=== PATIENT | male | born 1955 | race Caucasian/White ===

== ENCOUNTER 2025-02-21 09:55 | Emergency (ER) | payer MEDICARE, BC, SELFPAY ==
[2025-02-21] VITALS (15 sets, daily range): BP systolic 123–174; BP diastolic 74–92; PULSE 75–91; RESP 14–19; TEMP 36.9; O2SAT 94–97; BMI 32.0
--- OUTSIDE RECORDS SUMMARY | 2025-02-21 09:57 | XMS_ITS | Encounter Summary ---
Author Organization [facility] Address [address] [place] [address] Care Team Providers Care Application Technician Name Role Phone Unassigned, Provider Primary Care Provider Unava ilable Encounter Details Date Type Department Care Team (Late st Contact Info) Description 05/18/2004 [facility] Operating Room [address] [place], [place] [id number], [place] [address] Anuj Foote DDS, MS [address] [place] [address] Social History Tobacco Use Types Packs/Day Years Used Date Smoking Tobacco: Never Smokeless Tobacco: Never Alcohol Use Standard Drinks/Week Comments No 0 (1 standard drink = 0.6 oz pur e alcohol) Sex and Gender Information Value Date Recorded Sex Assigned at Not on file Legal Sex Male 4:15 AM CDT Gender Identity Not on file Sexual Orientation Not on file documented as of this encounter Procedure Notes * Anuj Foote - 05/18/2004 12:00 AM SENIOR AIR DIRECTOR DATE OF SURGERY: 05/18/2004 STAFF SURGEON: Anuj Foote DDS, MS PREOPERATIVE DIAGNOSIS: Left mandibular intrabony cyst and impacted wisdom tooth #17. POSTOPERATIVE DIAGNOSIS: Left mandibular intrabony cyst and impacted wisdom tooth #17. NAME OF OPERATION: Enucleation and removal, left mandibular cyst and removal of associated teeth #17, #18 and #19. ORGANS OF TISSUES REMOVED: Teeth x3 and associated jaw cyst for routine histology examination. ANESTHESIA: Orotracheal general anesthesia . BLOOD REPLACED: None DRAINS: None COMPLICATIONS: None HISTORY: This is a 49-year-old male referred by his home clinic for evaluation of a noted jaw lucency that was picked up on routine dental panoramic radiograph. The last one had been taken 10 years ago did not show any lucency but there had been a fairly large one noted associated with an impacted tooth #17 involving the roots of teeth numbers 18 and 19 as well. After evaluation, it was decided that this needed to be removed , any associated teeth removed and the area curetted and inspected and treated. We discussed potential risks of pain, infection, bleeding, swelling, recurrence of the soft tissue entity, loss of the associated teeth, temporary or permanent paresthesia or anesthesia of the inferior alveolar and lingual nerves, spontaneous jaw fracture post enucleation and malunion of the jaw. After this discussion and preoperative history and physical examination which showed no contraindication of the planned procedure or general anesthesia, the patient elected to proceed with the procedure, was brought in today same day for the procedure and informed consent document was signed. PROCEDURE: The patient was pre-medicated with 1 gram cephazolin preoperatively. Taken to the operating room, general anesthesia was induced and he was orotracheally intubated. He was prepped and draped in the usual fashion for an intraoral procedure. Moist throat pack was placed and kept in throughout the procedure. Ten cc of 1% lidocaine with 1:100,000 epinephrine were infiltrated into the surgical site areas. A crestal incision from posterior to the second molar around the necks of the teeth to the distal aspect of the first premolar was completed subperiosteal dissection completed buccally and using burs and saline irrigation, the crown of the impacted wisdom tooth and the very superior aspect of the associated cyst were exposed. Careful dissection was completed. The tooth #17 was then removed in segments after careful segmentation with the bur. Once this was removed we noted to be along the posterior aspect of the cyst. Additional bone relief was completed. It was noted that the cyst was associated with the root tips of teeth numbers 18 and 19. They therefore were extracted and submitted along with the specimen. The cyst was then carefully enucleated. It was noted that there was close approximation of the inferior alveolar nerve with the cyst capsule and that the nerve did tear in its midposition as this cyst was enucleated. It was noted that there were 3 small areas of perforation of the lingual plate. No perforations of the inferior border or buccal plate of the bone. Following this, manual and hand piece curettage was completed in all the bony areas. The wound was thoroughly irrigated any of the exposed periosteum at the perforations were cauterized with electrocautery. Superior soft tissue margins were all removed as well that could have been involved, and at this point 5 cc of DBX bone paste was placed into the wound and the wound was closed in layers with interrupted and continuous 3-0 chromic sutures to allow for water tight closure. Sponge and instrument counts was noted to be correct at that point. Hemostatic pack was placed. The moist throat pack was removed and the patient was allowed to recover from general anesthesia. Of note is that there was a single epineurial suture placed to reapproximate the nerve passively using one 6-0 nylon suture. Again, sponge and instrument counts was correct. Blood loss minimal. Specimen was associated cyst and teeth x3. No blood product replacement. lef Dictated: 05/18/2004 14:29:54 Anuj Foote DDS Transcribed: 05/18/2004 15:04:12 Doc #: [id number] cc: Demetris Ayon MD, Primary DO NOT SIGN UNLESS PRESENT FOR PROCEDURE I attest that I was present for and participated in the castro portions of this procedure(s) in compliance with the Health Care Financing Administration Teaching Physician Guidelines. Signed Date [facility] Staff Physician 1 Page 2 Patient Name: BRITT JACK Visit Date: 05/18/2004 OUTPATIENT OPERATIVE REPORT CONFIDENTIAL MEDICAL RECORD [address] [address] Page 1 Patient: BRITT JACK [id number] Date of : 1955 Visit Date: 05/18/2004 OUTPATIENT OPERATIVE REPORT OR AIR DIRECTOR documented in this encounter Plan of Treatment Upcoming Encounters Date Type Department Care Team (Late st Contact Info) Description 04/28/2025 12:00 PM SENIOR AIR DIRECTOR [facility]ment [facility] [place] [address] [place] [phone] Aide Wick, [facility] [address] [place] [address] documented as of this encounter Procedures Procedure Name Priority Date/Time Associated Diagnosis Comments SURGICAL PATH Routine 05/18/2004 12:00 AM SENIOR AIR DIRECTOR documented in this encounter Results * SURGICAL PATH (05/18/2004 12:00 AM SENIOR AIR DIRECTOR) 9911 (NOTE) Surgical Final Report Patient Name: BRITT JACK Taken: 05/18/2004 Received: 05/18/2004 Reported: 05/19/2004 Physician(s): ANUJ FOOTE ([id number]) Final Pathologic Diagnosis Soft tissue, mandible tooth #19, enucleation 1. Dentigerous cyst, inflamed. 2. Teeth, gross examination. km/05/19/2004 Electronicall y Signed Out By Kasey Gonzalez MD ([id number]) Procedures/Adden da Clinical History Odontogenic cyst Gross Description The specimen is labeled #17, #18, and associate mandibular cyst. The specimen consists of two (2) teeth and six (6) bony fragments. The specimen also includes a 2 cm in greatest dimension soft red roberts piece of tissue. The soft tissue is submitted on one (1) cassette. dm/cab cab/05/19/2004 Microscopic Description Microscopic examination is performed on 1 slide. km/05/19/2004 Kasey Gonzalez MD ([id number]) [facility] 05/18/2004 05/18/2004 us Anuj Foote DDS, MS LAB_1 Fin al Result [place], [place] [phone] documented in this encounter Visit Diagnoses Not on filedocumented in this encounter Care Teams Application Technician Relationship Specialty Start Date End Date Unassigned, Provider [address] [place] [address] PCP - General 03/01/00 documented as of this encounter
--- OUTSIDE RECORDS SUMMARY | 2025-02-21 09:57 | XMS_ITS | Clinical Summary ---
Author Organization [facility] Address [address] [place] [address] Care Team Providers Care Equipment Oiler Name Role Phone Unavailable Primary Care Provider Unavailabl e Allergies No known active allergies Medications Blood Pressure Test Kit-Large kitIndications:Hyp ertension, unspecified type As directed 1 unit. For home use-hypertension 1 Each 02/22/20 18 Active blood sugar diagnostic (ACCU-CHEK GUIDE) stripIndications:D iabetes mellitus type 2, uncontrolled, without complications Guide Strips. E11.65 NIDDM type II, uncontrolled - Test 3 times/day, Reason: High A1C 100 Strip 12 01/10/20 19 Active lancets (ACCU-CHEK FASTCLIX LANCET DRUM)Indications:D iabetes mellitus type 2, uncontrolled, without complications Dispense item covered by pt ins. E11.65 NIDDM type II, uncontrolled - Test 3 times/day, Reason: High A1C 102 Each 12 01/10/20 19 Active atorvastatin (LIPITOR) 20 mg tabletIndications: Hyperlipidemia, unspecified hyperlipidemia type TAKE ONE TABLET BY MOUTH ONE TIME DAILY AT BEDTIME 90 Tablet 3 05/04/19 25 Active amLODIPine (NORVASC) 10 mg tabletIndications: Hypertension, unspecified type Take 1 Tablet (10 mg) by mouth once daily. 90 Tablet 3 10/26/19 25 Active glipiZIDE extended-release (GLUCOTROL XL) 10 mg Extended-Release tabletIndications: Uncontrolled type 2 diabetes mellitus with hyperglycemia (HC) Take 2 Tablets (20 mg) by mouth once daily before a meal. 180 Tablet 1 10/26/19 25 Active hydroCHLOROthiazid e 25 mg tabletIndications: Hypertension, unspecified type Take 1 Tablet (25 mg) by mouth once daily. 90 Tablet 3 10/26/19 25 Active metFORMIN (GLUCOPHAGE) 1,000 mg tabletIndications: Uncontrolled type 2 diabetes mellitus with hyperglycemia (HC) Take 1 Tablet (1,000 mg) by mouth two times daily with meals. 180 Tablet 1 10/26/19 25 Active lisinopriL (PRINIVIL; ZESTRIL) 40 mg tabletIndications: Hypertension, unspecified type Take 1 Tablet (40 mg) by mouth once daily. 90 Tablet 1 10/26/19 25 Active pioglitazone (ACTOS) 30 mg tabletIndications: Uncontrolled type 2 diabetes mellitus with hyperglycemia (HC) Take 1 Tablet (30 mg) by mouth once daily. 90 Tablet 1 10/26/19 25 Active Active Problems Problem Noted Date Diagnosed Date Type 2 diabetes mellitus wit h other specified complication, without long-term current use of insulin 07/17/2023 Overweight 10/12/2022 Controlled type 2 diabetes m ellitus without complication, without long-term current use of insulin 07/07/2020 Essential hypertension 03/16/2009 Resolved Problems Problem Noted Date Diagnosed Date Resolved Date Type 2 diabetes mellitus wit h hyperglycemia, without long-term current use of insulin 10/05/2021 07/17/2023 Obesity (BMI 30-39.9) 03/01/20212022 Diabetes mellitus type 2, un controlled, without complications 01/22/2019 07/07/2020 Immunizations Immunization Administration Dates Next Due COVID-19 vaccine (Crunched NTCarnival 30mcg/0.3mL) 12YO+ EVA-SUCROSE PF, MDV 10/05/2021 COVID-19 vaccine (Crunched NTech 30mcg/0.3mL) PF, MDV 03/01/2021,06/30/2020,06/09/2020 Hepatitis B (Adult) 12/29/1994,08/01/1994,1994 Hepatitis B, Unspecified 12/29/1994,08/01/1994,0 07/04/1994 Influenza, High-dose Inactivated 12/18/2023 Influenza, High-dose Quadriv alent Inactivated 01/09/2023,01/10/2022 Influenza, IIV4 12/28/2018, 8,02/05/2015,2013 Influenza, IIV4 (=>6mos) MDV 12/24/2016 Influenza, Inactivated AIIV4 (Age 65+ Years) Preserv Free 03/01/2021 Pneumococcal Poly,23-Valent (Pneumovax) 07/24/2020 Pneumococcal conj 13-Valent (Prevnar 13) 04/23/2019 Td (Age >=7 Years) 03/01/2003 Tdap 10/11/2021,09/30/2011 Zoster (Shingrix-RZV, recombinant) 09/30/2020, Zoster (Zostavax-ZVL, live) 07/30/2015 Family History Medical History Relation Name Comments Heart Disease Paternal Grandfather Cancer-colon No Family History Cancer-prostate No Family History Relation Name Status Comments Paternal Grandfather Social History Tobacco Use Types Packs/Day Years Used Date Smoking Tobacco: Never Smokeless Tobacco: Never Tobacco Cessation:Counseling Given: No Alcohol Use Standard Drinks/Week Comments Yes 0 (1 standard drink = 0.6 oz pur e alcohol) 2 beers per months PHQ-2 Answer Date Recorded PHQ-2 TOTAL SCORE 0 04/22/2024 Social Connections Answer Date Recorded Do you often feel lonely or isolated from those around you? 0 07/25/2024 Financial Resource Strain Answer Date R ecorded Difficulty of Paying Living Expenses 3 07/25/2024 Difficulty of Paying Living Expenses Not on file 07/25/2024 Food Insecurity Answer Date Recorded Do you worry your food will run out before you are able to buy more? 1 07/25/2024 Transportation Needs Answer Date Record ed Does lack of transportation keep you from medica l appointments? 1 07/25/2024 Does lack of transportation keep you from work, meetings or getting things that you need? 1 07/25/2024 Housing Stability Answer Date Recorded What is your housing situation today? 1 07/25/2024 Utilities Answer Date Recorded Do you have trouble paying f or utilities (for example, heat, electricity, water, phone)? 1 07/25/2024 Sex and Gender Information Value Date Recorded Sex Assigned at Not on file Legal Sex Male 5:25 AM PIPE SMOKING MACHINE OPERATOR Gender Identity Not on file Sexual Orientation Not on file Obstetrics History Last Filed Vital Signs Vital Sign Reading Time Taken Comments Blood Pressure 146/75 10/25/2024 8:47 AM CDT Pulse 73 10/25/2024 8:32 AM CDT Temperature 36.9 C (98.5 F) 11/04/2019 2:41 PM CDT Respiratory Rate - - Oxygen Saturation 98% 10/25/2024 8:32 AM CDT Inhaled Oxygen Concentration - - Weight 95.2 kg (209 lb 12.8 oz) 10/25/2024 8:32 AM CDT Height 177.4 cm (5' 9.84) 04/22/2024 9:01 AM CS T Body Mass Index 30.24 04/22/2024 9:01 AM PIPE SMOKING MACHINE OPERATOR Plan of Treatment Upcoming Encounters Date Type Department Care Team (Late st Contact Info) Description 04/28/2025 8:15 AM PIPE SMOKING MACHINE OPERATOR Office Visit [facility] [address] [place] [address] Theo Schroeder MD [address] [place] [address] Health Maintenance Due Date Last Done Comments Medicare Wellness for age 65+ 03/02/2022 03/01/2021, 10/22/2019 Fecal testing non-DNA (FIT,FOBT,iFOBT) for age 45-75 09/07/2022 09/07/2021, 07/08/2020, 04/24/2019, Additional history exists Influenza Vaccine (#1) 2024 , 03/01/2021, 12/28/2018, Additional history exists BMI (ht and wt on same day) for age 18+ 04/22/2025 04/22/2024, 01/16/2024, 07/17/2023, Additional history exists Depression screening for age 12+ 04/24/2025 04/24/2024, 04/22/2024, 10/12/2022, Additional history exists Lipids for age 45-75 01/15/2029 01/16/2024, 10/12/2022, 10/05/2021, Additional history exists RSV vaccine for adults or (1 - 1-dose 75+ series) 2029 Tetanus booster 10/12/2031 10/11/2021, 07/0 08/2011, 03/01/2003 Hepatitis B series for 19+ Completed 12/29, 12/29/1994, 08/01/1994, Additional history exists Hepatitis C screening for ag e 18-79 Completed 11/04/2019, 04/23/2019 Pneumococcal series for age 50+ Completed , 04/23/2019 Zoster (shingles) series for age 50+ Completed 09/30/2020, 07/24/2020, 07/30/2015 Procedures Procedure Name Priority Date/Time Associated Diagnosis Comments LIPID PANEL W REFLEX MEASURED LDL Routine 01/16/2024 8:10 AM CDT Controlled type 2 diabetes mellitus without complication, without long-term current use of insulin (HC) OCCULT BLOOD IFOBT STOOL Routine 09/07/2021 7:28 AM CDT Screening for colorectal cancer ANTI HCV Routine 11/04/2019 3:15 PM CDT Screen for STD (sexually transmitted disease) from Last 3 Months or Most Recently Relevant to Health Maintenance Results * (ABNORMAL) LIPID PANEL W REFLEX MEASURED LDL (01/16/2024 8:10 AM CDT) CHOLESTEROL, TOTAL 110 <200 mg/dL [email or web address] HDL CHOLESTEROL 33(L) > OR = 40 mg/dL [email or web address] TRIGLYCERIDES 144 <150 mg/dL [email or web address] LDL-CHOLESTEROL 54 mg/dL (calc) [email or web address] Comment: Reference range: <100 Desirable range <100 mg/dL for primary prevention; <70 mg/dL for patients with CHD or diabetic patients with > or = 2 CHD risk factors. LDL-C is now calculated using the Shira calculation, which is a validated novel method providing better accuracy than the Friedewald equation in the estimation of LDL-C. Min SS et al. DEANGELO. 2013;310(19): 7014-8459 (http://education.[employer]faq/XJA628) CHOL/HDLC RATIO 3.3 <5.0 (calc) [email or web address] NON HDL CHOLESTEROL 77 <130 mg/dL (calc) [email or web address] Comment: For patients with diabetes plus 1 major ASCVD risk factor, treating to a non-HDL-C goal of <100 mg/dL (LDL-C of <70 mg/dL) is considered a therapeutic option. Blood BLOOD SPECIMEN / Unknown 01/16/2024 8:10 AM CDT 01/16/2024 8:12 AM CDT Narrative [facility] - 01/17/2024 4:31 AM CDT FASTING:YES FASTING: YES Jese Armenta MD CHEMISTRY Final Result Performing Organization Address [facility] Co de Phone Number [employer] [facility] [address] [place] [address], [facility] [address] [place] [address] * OCCULT BLOOD IFOBT STOOL (09/07/2021 7:28 AM CDT) Pathologist [facility] STOOL BLOOD ,IFOBT Negative Negative 09/13/2021 11:[address] [facility] Stool STOOL SPECIMEN / Unknown Non-Blood / Unknown 09/07/2021 7:28 AM CDT 09/13/2021 7:28 AM CDT Jese Armenta MD LABORATORY Final Result Performing Organization Address [facility] Co de Phone Number [facility] [address] [place] [address], [place] [phone] * ANTI HCV (11/04/2019 3:15 PM CDT) Pathologist [facility] HEPATITIS C ANTIBODY Non-React vaughn Non-React vaughn 11/04/2019 9:03 PM CDT [facility] Comment:Antibodies to HCV no t detected; does not exclude the possibility of exposure to HCV. Blood BLOOD SPECIMEN / Unknown Venipuncture / Unknown 11/04/2019 3:15 PM CDT 11/04/2019 3:15 PM CDT us Jese Armenta MD SEND OUTS Final Result [facility] [address] [place] [address], [place] from Last 3 Months or Most Recently Relevant to Health Maintenance Insurance [facility] MEDICARE PB ONLY MEDICARE PART B HB ONLY
--- OUTSIDE RECORDS SUMMARY | 2025-02-21 09:57 | XMS_ITS | Clinical Summary ---
Author Organization [facility] Address [address] [place] [address] Care Team Providers Care System Safety Engineer Name Role Phone Unassigned, Provider Primary Care Provider Unava ilable Source Comments You are receiving this document as you are listed as the primary care provider,follow-up provider, or the patient has been referred to you for consultation.This is in compliance with the Medicare and[facility] EHR Incentive Program,which states Providers who transition their patient to another setting of careor provider of care or refers their patient to another provider of care shouldprovide summary care record for each transition of care or referral. ip.access Allergies No known active allergies Medications lisinopril (ZESTRIL) 10 MG tabletIndicatio ns:Hypertension Take 10 mg by mouth daily. Indications: High Blood Pressure Disorder Active metFORMIN (GLUCOPHAGE) 500 MG tabletIndicatio ns:Type 2 Diabetes Mellitus Take 500 mg by mouth two times a day with meals. Indications: Type 2 Diabetes Active atorvastatin (LIPITOR) 20 MG tablet Take 20 mg by mouth daily at bedtime. 01/10/2020 Active aspirin EC 81 MG enteric coated tablet Take 81 mg by mouth daily. Active amLODIPine (NORVASC) 10 MG tablet Take 1 Tablet (10 mg) by mouth daily. 04/11/2024 Active glipiZIDE XL 10 MG 24 hour release tablet Take 1 Tablet (10 mg) by mouth daily. 04/11/2024 Active hydroCHLOROthia zide (ORETIC) 25 MG tablet Take 1 Tablet (25 mg) by mouth daily. 04/11/2024 Active pioglitazone (ACTOS) 30 MG tablet Take 0.5 Tablets (15 mg) by mouth daily. 04/22/2024 Active Active Problems No known active problems Social History Tobacco Use Types Packs/Day Years Used Date Smoking Tobacco: Never Smokeless Tobacco: Never Alcohol Use Standard Drinks/Week Comments No 0 (1 standard drink = 0.6 oz pur e alcohol) Sex and Gender Information Value Date Recorded Sex Assigned at Not on file Legal Sex Male 4:15 AM CDT Gender Identity Not on file Sexual Orientation Not on file Last Filed Vital Signs Vital Sign Reading Time Taken Comments Blood Pressure 139/82 08/15/2018 3:13 PM CDT Pulse 80 08/15/2018 3:13 PM CDT Temperature - - Respiratory Rate - - Oxygen Saturation - - Inhaled Oxygen Concentration - - Weight - - Height - - Body Mass Index - - Plan of Treatment Upcoming Encounters Date Type Department Care Team (Late st Contact Info) Description 04/28/2025 12:00 PM BOAT BUFFER PLASTIC Appointment [facility] [place] [id number] [place] [phone] [facility] [address] [place] [address] Health Maintenance Due Date Last Done Comments Colon Cancer Screening Plan Due 1955 Hep C Screening (Preventive Services) 1955 Adult Preventive Visit 1972 Cholesterol 1989 Zoster/Shingles Vaccine (2 of 3) 09/24/2015 07/30/2015 Pneumococcal Vaccine 50+ Yrs (2 of 2 - PCV20 or PCV21) 04/23/2020 04/23/2019 DTaP/Tdap/Td Vaccine (2 - Tdap) 09/29/2021 09/30/2011, 03/01/2003 COVID-19 Vaccine (3 - season) 2024 06/30/2020, 06/09/2020 Influenza Vaccine (#1) 2024 9, 01/03/2018, 12/24/2016, Additional history exists RSV Vaccine (1 - 1-dose 75+ series) 2029 HepA Vaccine Aged Out No longer eligi ble based on patient's age to complete this topic HepB Vaccine Aged Out No longer eligi ble based on patient's age to complete this topic Hib Vaccine Aged Out No longer eligi ble based on patient's age to complete this topic MCV4 Vaccine Aged Out No longer eligi ble based on patient's age to complete this topic Meningococcal B Vaccine Aged Out No l onger eligible based on patient's age to complete this topic Care Teams System Safety Engineer Relationship Specialty Start Date End Date Unassigned, Provider [address] [place] [address] PCP - General 03/01/00
--- NOTE | 2025-02-21 11:05 | ED.SYNCOPE ---
HPI - Syncope General Time Seen by Provider: 11:05 Date Seen: 02/21/25 Chief Complaint: Syncope/Fainted Stated Complaint: Headaches - passing out Time Seen by Provider: 02/21/25 11:04 Source: patient and RN notes reviewed Mode of arrival: ambulatory Limitations: no limitations History of Present Illness HPI narrative: This 6-year-old male is ambulatory into the ER with episodes of brief syncope an episode of presyncope today. About 2 weeks ago he states he was out in the garage, started feeling really lightheaded and dizzy, there was a chair behind him and he made it to the chair, feels he passed out briefly. He had another episode yesterday morning when he was sitting in the chair and it happened. This morning he got out of bed and walked to the dresser, felt like it was going to happen and grabbed the dresser, did not pass out. He notes for the last about 2-3 weeks, feels dizzy or lightheaded most of the morning. He does state he started metformin for diabetes. He is on blood pressure medicines, cholesterol medicines. He has no prior documented vascular history like heart disease. There is no personal or family history of blood clots. He has not been sick with anything. Has not noted any sense of irregular heartbeat, no chest pain, no palpitations or slow heartbeat, no shortness of breath with any of these symptoms. He has had no GI symptoms with any of these symptoms. He feels baseline neurologically as far as motor and sensory when he comes to. His brother reportedly had ?major? vascular disease of his heart, he is not sure if his brother had a CABG or just stenting but he notes he had ?surgery?. His dad has had a stroke. Patient does not smoke or drink. His chief complaint or triage does document headaches but he is adamant that he is having no headaches, he has had a sense of dizziness. MD complaint: loss of consciousness and almost passed out Related Data Home Medications ?Medication ?Instructions ?Recorded ?Confirmed amlodipine 10 mg tablet 10 mg PO DAILY 02/21/25 02/21/25 atorvastatin 20 mg tablet 20 mg PO QPM 02/21/25 02/21/25 glipizide 10 mg tablet, extended mg PO 02/21/25 release 24 hr hydrochlorothiazide 25 mg tablet 25 mg PO DAILY 02/21/25 02/21/25 lisinopril 40 mg tablet 40 mg PO DAILY 02/21/25 02/21/25 metformin 1,000 mg tablet 1,000 mg PO BID 02/21/25 02/21/25 pioglitazone 30 mg tablet 30 mg PO DAILY 02/21/25 02/21/25 Allergies Allergy/AdvReac Type Severity Reaction Status Date / Time No Known Drug Allergies Allergy Verified 02/21/25 16:13 Review of Systems Status of ROS: Reports: 6 or more systems reviewed and unremarkable except as noted in History and below [facility] Medical History (Updated 02/21/25 @ 16:43 by Margarita Arredondo MD) Diabetes ?E11.9 - Type 2 diabetes mellitus without complications (ICD-10) Hypertension ?I10 - Essential (primary) hypertension (ICD-10) Social History Smoking Status: Never smoker How often do you have a drink containing alcohol: never AUDIT-C Alcohol total score: 0 Non-prescribed substance use: denies use Exam Const: Vital Signs, click to edit/add: Vital Signs - 24 hr 02/21/25 10:28 02/21/25 11:47 02/21/25 12:00 Temperature 98.4 F Pulse Rate 80 81 Pulse Rate [Pulse Oximeter] 90 Respiratory Rate 18 19 Blood Pressure Blood Pressure [Ri ght Upper Arm] 174/82 H Pulse Oximetry 95 95 96 Oxygen Delivery Me thod Room Air 02/21/25 12:03 02/21/25 12:10 02/21/25 12:12 Temperature Pulse Rate 81 88 91 Pulse Rate [Pulse Oximeter] Respiratory Rate 16 Blood Pressure 123/74 152/85 H 147/91 H Blood Pressure [Ri ght Upper Arm] Pulse Oximetry 96 95 95 Oxygen Delivery Me thod 02/21/25 12:15 02/21/25 12:30 02/21/25 12:37 Temperature Pulse Rate 79 89 82 Pulse Rate [Pulse Oximeter] Respiratory Rate 17 17 Blood Pressure 133/83 Blood Pressure [Ri ght Upper Arm] Pulse Oximetry 96 95 94 Oxygen Delivery Me thod 02/21/25 12:45 02/21/25 13:00 02/21/25 13:15 Temperature Pulse Rate 79 81 78 Pulse Rate [Pulse Oximeter] Respiratory Rate 14 18 14 Blood Pressure Blood Pressure [Ri ght Upper Arm] Pulse Oximetry 94 94 95 Oxygen Delivery Me thod 02/21/25 13:30 02/21/25 15:13 02/21/25 16:30 Temperature Pulse Rate 79 Pulse Rate [Pulse Oximeter] 75 Respiratory Rate 16 Blood Pressure Blood Pressure [Ri ght Upper Arm] 147/92 H 133/77 Pulse Oximetry 96 97 Oxygen Delivery Me thod Room Air This 69-year-old male is alert, interactive, no apparent distress, seen in exam room 2, lying in the ER bed. Pupils equal round reactive, sclera clear, extraocular muscles intact. Symmetrical facial function. Neck is thick, note no jugular venous distension, no masses, no adenopathy. Lungs are clear, good air entry, no wheezing or crackles, no tachypnea. CV regular rate and rhythm, no murmur, normal S1-S2, no S3-S4. Abdomen is soft, nontender, nondistended, no organomegaly, rebound or guarding. He has no lower extremity edema. Patient was ambulatory into the ED of his own accord. Strength and sensory grossly normal at this time. He has a scar on the top of his left shoulder area, he is questioned about this. He states he had a cancerous lesion taken off the shoulder, he is not aware of what it was, does not know if it was something like a basal cell carcinoma, squamous carcinoma or melanoma, he does not know. Documenting provider has reviewed patient's vital signs: yes Course Course ED Course: This 69-year-old male is alert and hemodynamically and neurologically normal. He has started metformin for diabetes, will see if I can look up his history further. We will have him on cardiac monitoring and pulse oximetry looking for arrhythmia and hypoxia. Nursing staff appropriately did the EKG on arrival and that is appearing normal. Will have nursing staff do orthostatics looking for orthostatic changes. Will get a lactate, he could be having complications of initiation of metformin. Will also look at renal function. Will do a D-dimer, will consider doing chest CT PE protocol if this is elevated but patient has no sense of palpitations, fast heart rate or shortness of breath. Intracranial pathology like ischemic disease is always possible but if he is having an off ischemic intracranial disease to give him syncope, would think that we would be seen more symptoms. We will do a head CT noncontrast on the last making sure that for some reason there isn't a lesion or evidence of underlying ischemic disease in the brain. Will talk to Neurology if we have any concerns on the head CT. Reevaluation(s) Time of Reevaluation #1: 12:00 Reevaluation #1: Have reviewed patient's records, his lactate is elevated at 3.3. His metformin is not a new medicine, do not have his other labs back. Will initiate 500 mL normal saline. Does not seem to have any evidence of any illness. Wonder if his medicines could be contributing to lactic acidosis. Will have nursing staff get orthostatics before giving IV fluids. Time of Reevaluation #2: 13:58 Reevaluation #2: Patient's orthostatics are non concerning. Lying his blood pressure is 123/74, pulse of 88. Sitting his blood pressure was 152/85, pulse 82. Standing his blood pressure is 147/91, pulse 93. Thus he is not orthostatic. Do wonder about lactic acidosis in review of his labs. Did give him a bolus of fluids, will recheck a lactate at this point. Time of Reevaluation #3: 14:36 Reevaluation #3: Lactate improved to 2.9. Reviewed with patient that is orthostatic vitals are normal. His head CT is not showing any evidence of any prior infarcts, no masses. We reviewed that I do wonder if this is his medication. I will give him a full L of fluids, see if the lactate continues to improve. He understands he might need to follow-up in clinic to get his diabetic medications changed. Reviewed this with him. We did discuss other etiologies of increased lactate, he absolutely is not feeling ill with any infectious etiology. Additional Reevaluation(s): 4:48 p.m.: Was reported to me that there was an air and processing his blood work, lab will need to redraw the lactate. Really would like to see a repeat lactate level and thus will have this recollected. 4:58 p.m.: Patient is refusing repeat blood draw per nursing staff. I went to talk to him and he had pulled off his monitors, pulled out his IV, side the tape an IV port on the bed. I did not have a chance to talk to him. I did put in discharge instructions for this patient but nursing staff was never able to give them to him. I would consider him leaving against medical advice at this time. Did not have a chance to talk to him myself or explain things. I had put his discharge in prior to being unable to talk to him. Patient is definitely against medical advice as there was no chance to give him follow-up and input on the lack of the repeat lactate. Vital Signs Vital signs: Initial Vital Signs Temperature 98.4 F 02/21/25 10:28 Temperature Source Temporal Artery Scan 02/21/25 10:28 Pulse Rate 90 02/21/25 10:28 Respiratory Rate 18 02/21/25 10:28 Blood Pressure 174/82 H 02/21/25 10:28 Blood Pressure Mean 112 H 02/21/25 10:28 Pulse Oximetry 95 02/21/25 10:28 Oxygen Delivery Method Room Air 02/21/25 10:28 Vital Signs Temperature 98.4 F 02/21/25 10:28 Pulse Rate 90 02/21/25 10:28 Respiratory Rate 18 02/21/25 10:28 Blood Pressure 174/82 H 02/21/25 10:28 Pulse Oximetry 95 02/21/25 10:28 Oxygen Delivery Method Room Air 02/21/25 10:28 Temperature 98.4 F 02/21/25 10:28 Pulse Rate 75 02/21/25 15:13 Respiratory Rate 16 02/21/25 15:13 Blood Pressure 133/77 02/21/25 16:30 Pulse Oximetry 97 02/21/25 15:13 Oxygen Delivery Method Room Air 02/21/25 15:13 Medications Administered Medications: Discontinued Medications Generic Name Dose Route Start Last Admin Trade Name Freq PRN Reason Stop Dose Admin Sodium Chloride 500 mls @ 500 mls/hr 02/21/25 11:59 02/21/25 13:30 0.9 % Sodium Chloride 500 Ml IV 02/21/25 12:58 Infused .Q1H ONE Infusion Sodium Chloride 1,000 mls @ 1,000 mls/hr 02/21/25 14:35 02/21/25 16:00 0.9 % Sodium Chloride 1000 Ml IV 02/21/25 15:34 Infused .Q1H ANNALEE Infusion MDM - Syncope Medical Records Attestation: I reviewed the patient's medical records. Medical records narrative: Did review his [facility] record. He was seen in October, was reportedly angry regarding contacts from clinic and need to be seen with her frequency he was needed for his diabetes. It appears that he had been on amlodipine 10 mg daily, Lipitor 20 mg daily, Glucotrol XL 20 mg daily, lisinopril 40 mg daily, metformin 1000 mg b.i.d., pioglitazone 30 mg daily. His hemoglobin A1c measured in July was 9.8, had improved from 11.1 from a prior check. He had hypertension of 146/75 at that visit, patient does not make any changes. He was advised that was recommended for 3 month follow-up but he refused, stating that he would only come back at 6 months. He felt the frequency the visits was an attempt to get money per the note. His provider Dr. Geovany leon did review with the patient that this was all just in line with national guidelines for diabetic control. Patient had received a Cologuard test in July of this year in the mail from his clinic, he brought it back in refusing to do the test and wanted to make sure he was not going to need to pay for it. Lab Data Attestation: I reviewed the patient's lab results. Labs: Lab Results 02/21/25 02/21/25 02/21/25 Range/Units 11:35 11:40 14:14 WBC 6.60 (4.50-11.00) K/uL RBC 4.52 (4.30-5.90) m/uL Hgb 14.6 (13.5-17.5) gm/dL Hct 42.1 (37.0-53.0) % MCV 93 (80-100) fL MCH 32 (26-34) pg MCHC 35 (32-36) gm/dL RDW Coeff of Presley 12.1 (11.5-15.5) % Plt Count 200 (140-440) K/uL Neut % (Auto) 58.7 (42.0-72.0) % Lymph % (Auto) 25.9 (20-44) % Wise % (Auto) 8.6 (0.0-11.0) % Eos % (Auto) 5.0 (0.0-7.0) % Baso % (Auto) 0.9 (0.0-3.0) % Neut # (Auto) 3.87 (1.7-7.0) K/uL Lymph # (Auto) 1.71 (0.90-2.90) K/uL Wise # (Auto) 0.60 (0.00-0.90) K/UL Eos # (Auto) 0.33 (0.00-0.50) K/uL Baso # (Auto) 0.06 (0.00-0.30) K/uL Abs Immat Gran (auto) 0.06 (0.00-0.30) K/uL Imm/Tot Granulo (auto) 0.9 % D-Dimer Quant (PE/DVT) < 0.27 (0.00-0.50) ug/ml Sodium 139 (135-149) mmol/L Potassium 3.9 (3.6-5.1) mmol/L Chloride 100 (96-114) mmol/L Carbon Dioxide 20 (20-32) mmol/L Anion Gap 19 H (7-15) mEq/L BUN 15 (7-30) mg/dL Creatinine 0.8 (0.5-1.5) mg/dL Estimated Creat Clear 68.74 Estimated GFR 95 ml/min Glucose 236 H (60-115) mg/dL Lactate 3.3 H 2.9 H (0.5-1.9) mmol/L Calcium 9.1 (8.4-10.6) mg/dL Magnesium 1.7 (1.5-2.6) mg/dL Total Bilirubin 0.5 (0.1-1.5) mg/dL AST 23 (12-35) U/L ALT 30 (4-50) U/L Alkaline Phosphatase 54 (40-150) U/L POC Troponin I High Sensi 4.0 (2.9-28.0) pg/mL C-Reactive Protein < 0.5 L (0.5-1.0) mg/dL NT-Pro-B Natriuret Pep 37 (See Note) pg/mL Total Protein 7.1 (6.0-8.3) g/dL Albumin 4.3 (3.3-5.0) g/dL Imaging Data CT scan - head: Attestation: I have reviewed the pertinent imaging results. Radiologist's impression: Patient: BRITT JACK Facility:?[facility] RIS Patient ID:?[id number] Site Patient ID:?[id number]. Site :?[id number] Study:?CT-Head WITHOUT-02/21/2025 11:43:37 AM Ordering Physician:?Maria Elena Avila Final Report: INDICATION: Dizziness, passed out many times TECHNIQUE: CT head without contrast. COMPARISON: None. FINDINGS: CSF spaces: Within normal limits for age. Brain parenchyma: The smith-white differentiation is normal. No sign of mass, hemorrhage, or midline shift. Skull base and calvarium: The visualized paranasal sinuses and mastoid air cells demonstrate no acute or significant findings. The visualized orbits are grossly unremarkable. No skull fractures. Atherosclerosis. IMPRESSION: Unremarkable noncontrast head CT. Please note that all CT scans at this facility use dose modulation, iterative reconstruction, and/or weight-based dosing when appropriate to reduce radiation dose to as low as reasonably achievable. Dictated by Caesar Currie MD @ 02/21/2025 11:56:42 AM (Electronic Signature) ECG Data Attestation: I personally reviewed and interpreted this ECG as follows: (Normal sinus rhythm, 84 beats per minute. No ischemic change, no infarct. Isolated flipped T-waves without any segment changes in V1 and lead 3.) ECG interpretation date: 02/21/25 ECG interpretation time: 11:26 Prior ECG tracings: not available for review Discharge Plan Discharge Clinical Impression: Acute lactic acidosis Syncope Qualifiers: Syncope type: unspecified Qualified Code(s): R55 - Syncope and collapse Patient Disposition: Home, Self-Care Condition: Stable Instructions: Syncope (ED) Additional Instructions: Unfortunately you really did not complete the workup here. I was unable to see if your lactate improved in cannot tell you with assured the that your metformin is the only culprit. There are many things that can elevate lactic acid in her blood. At this time, I request you follow-up with your primary care provider to further discuss diabetic management, consider read drawing labs at some point. In the interim, if you feel you are having ongoing issues with syncope, are feeling worse, develops any symptoms of anything infectious like cough, abdominal pain, urinary symptoms, etc., please return to the ER for further evaluation. For the syncope, I also need you to follow up in clinic. If you have ongoing symptoms, would consider having you do cardiac monitoring outpatient with something called a Zio patch. If you have further syncopal events, do think you need to return to the ER for re-evaluation. Activity Level: Activity as Tolerated Prescriptions: No Action atorvastatin 20 mg tablet 20 mg PO QPM glipizide 10 mg tablet extended release 24hr PO amlodipine 10 mg tablet 10 mg PO DAILY metformin 1,000 mg tablet 1,000 mg PO BID hydrochlorothiazide 25 mg tablet 25 mg PO DAILY pioglitazone 30 mg tablet 30 mg PO DAILY lisinopril 40 mg tablet 40 mg PO DAILY Follow Up/Referrals: Theo Schroeder MD [Primary Care Provider, Family Practice] Stand Alone Forms: [facility] Info Instructions
--- NOTE | 2025-02-21 11:14 | CRLHL7_ITS ---
For Patients: As a result of the Century Cures Act, medical imaging exams and procedure reports are released immediately into your electronic medical record. You may view this report before your referring provider. If you have questions, please contact your health care provider. INDICATION: Dizziness, passed out many times TECHNIQUE: CT head without contrast. COMPARISON: None. FINDINGS: CSF spaces: Within normal limits for age. Brain parenchyma: The smith-white differentiation is normal. No sign of mass, hemorrhage, or midline shift. Skull base and calvarium: The visualized paranasal sinuses and mastoid air cells demonstrate no acute or significant findings. The visualized orbits are grossly unremarkable. No skull fractures. Atherosclerosis. IMPRESSION: Unremarkable noncontrast head CT. Please note that all CT scans at this facility use dose modulation, iterative reconstruction, and/or weight-based dosing when appropriate to reduce radiation dose to as low as reasonably achievable. Dictated by Caesar Currie MD @ 02/21/2025 11:56:42 AM (Electronically Signed)
[2025-02-21 11:41] LABS: Lactate* 3.3 mmol/L (0.5-1.9); Sodium* 139 mmol/L (135-149)
[2025-02-21 11:53] LABS: Hematocrit* 42.1 % (37.0-53.0); Hemoglobin* 14.6 gm/dL (13.5-17.5); Immature Granulocytes Abs Auto 0.06 K/uL (0.00-0.30); Immature Granulocytes Pct Auto 0.9 %; Lymphocytes Absolute Auto 1.71 K/uL (0.90-2.90); Mean Corpuscular HGB Conc 35 gm/dL (32-36); Mean Corpuscular Hemoglobin 32 pg (26-34); Mean Corpuscular Volume 93 fL (80-100); RDW Coefficient of Variation % 12.1 % (11.5-15.5); Red Blood Count* 4.52 m/uL (4.30-5.90); White Blood Count* 6.60 K/uL (4.50-11.00)
[2025-02-21 11:57] LABS: Slide Review Reflex No
[2025-02-21 12:07] LABS: Albumin* 4.3 g/dL (3.3-5.0); Chloride* 100 mmol/L (96-114); Potassium* 3.9 mmol/L (3.6-5.1)
[2025-02-21 12:10] LABS: Alanine Aminotransferase* 30 U/L (4-50); Alkaline Phosphatase* 54 U/L (40-150); Anion Gap 19 mEq/L (7-15); Aspartate Amino Transferase* 23 U/L (12-35); Bilirubin Total* 0.5 mg/dL (0.1-1.5); Blood Urea Nitrogen* 15 mg/dL (7-30); Carbon Dioxide* 20 mmol/L (20-32); Creatinine* 0.8 mg/dL (0.5-1.5); Est. Creatinine Clearance* 68.74; Estimated Glomerular Filt Rate 95 ml/min; Total Protein* 7.1 g/dL (6.0-8.3)
[2025-02-21 12:11] LABS: Calcium* 9.1 mg/dL (8.4-10.6); Glucose* 236 mg/dL (60-115)
[2025-02-21 12:14] LABS: D Dimer Quantitative* < 0.27 ug/ml (0.00-0.50)
--- NOTE | 2025-02-21 12:14 | ED.NURSE ---
Orthostatics: Laying 123/74 HR 88 Sitting 152/85 HR 82 Standing 147/91 HR 92 Patient tolerated well. Denies dizziness, lightheaded, nausea.
[2025-02-21 12:21] LABS: NT Pro B Type NatriureticPept* 37 pg/mL (See Note)
[2025-02-21] MEDS: 0.9 % SODIUM CHLORIDE 500 ML 500 ML IV (12:45)
[2025-02-21 14:32] LABS: Lactate* 2.9 mmol/L (0.5-1.9)
== END 2025-02-21 17:08 | disposition home or self-care (01) ==
PROVIDERS: Emergency Provider Family Medicine; PCP Family Medicine
DX: E87.21 Acute metabolic acidosis (principal); R55 Syncope and collapse; E11.9 Type 2 diabetes mellitus without complications; Z79.84 Long term (current) use of oral hypoglycemic drugs; I10 Essential (primary) hypertension; Z79.899 Other long term (current) drug therapy; Z53.29 Procedure and treatment not carried out because of patient's decision for other reasons
CPT/HCPCS: 36415; 70450; 80053; 83605; 83735; 83880; 84484; 85025; 85379; 86140; 96360; 96361; 99284; J7030